=== PATIENT | male | born 1990 | race Caucasian/White ===

== ENCOUNTER 2024-11-29 00:32 | Emergency (ER) | payer MEDICAID ==
[~2024-11-29] VITALS: Ht 185.4 cm; Wt 145.1 kg
[2024-11-29 02:31] VITALS: TEMP 97.8
[2024-11-29] MEDS ORDERED: PROP20TA7 PO (02:50)
[2024-11-29] MEDS ORDERED: PROPRANOLOL HCL 10 MG TABLET ONE (03:03)
[2024-11-29 03:06] VITALS: BP 160/80; O2SAT 100
[2024-11-29] MEDS: PROPRANOLOL HCL 10 MG TABLET PO SCH (03:06)
== END 2024-11-29 03:06 | disposition home or self-care (01) ==
LOC: ER 00:36
DX: F41.0 Panic disorder [episodic paroxysmal anxiety] (principal); E66.9 Obesity, unspecified; M10.9 Gout, unspecified; Z68.41 Body mass index [BMI] 40.0-44.9, adult; Z91.013 Allergy to seafood; Z98.890 Other specified postprocedural states